=== PATIENT | male | born 1940 | race Caucasian/White ===

== ENCOUNTER 2017-02-25 18:56 | Inpatient (IN) | payer BC ==
--- NOTE | ~2017-02-25 | DS ---
Discharge Summary [facility] [address] [facility] [place]. [address] NAME: AMY MERCADO JR : 44 STATUS : DIS IN PAT#: [id number] AGE: 76 ADM/REG DATE : 02/25/17 MR#: [id number] REPORT SERV DATE: 03/05/17 DICTATED BY: HUNTER COLEMAN DATE: 03/04/17 REPORT STATUS : Draft TRANSCRIBED BY: PHYLLIS DATE: 03/04/17 ADMISSION DATE: 02/25/2017 DISCHARGE DATE: 03/04/2017 CONSULTATION: Neurology, Dr. Jessie Dave. INVASIVE PROCEDURE: None. DISCHARGE DIAGNOSES: 1. Acute left-sided brainstem infarction. 2. Chronic atrial fibrillation. 3. Peripheral arterial disease. 4. Hypertension. 5. Diabetes mellitus type 2. 6. Dyslipidemia. 7. Hypothyroidism. 8. Obstructive sleep apnea. DISCHARGE CONDITION: Stable. HISTORY OF PRESENT ILLNESS: 1. For detailed HPI, please make reference to Dr. Pedro Alarcon's dictation on 02/25/2017. In brief, this is a 76-year-old male with medical history of hypertension, diabetes mellitus, atrial fibrillation, who presented to the hospital with sudden onset of lightheadedness, slurred speech and droopy face, and was brought to the emergency department. On arrival in the emergency department, a stroke alert was called. The neuro team and the ICU team admitted the patient to the ICU. In the ICU, he was found to have a blood pressure of 184/102, pulse of 90. Physical exam was noted for a dysconjugate gaze, left facial droop. The neuro team administered tPA to the patient in the ICU. The patient's neuro deficit had some minimal improvement. There was improvement in the patient's slurred speech and dysconjugate gaze also improved. A repeat CT scan did not show any acute bleed. The patient tolerated tPA without any significant complication. The patient was monitored in the ICU for 48 hours, and subsequently transferred to the medical floor. For detail cause in the ICU, please make reference to Dr. Pedro Alarcon's dictation. The patient underwent physical therapy assessment and was recommended the patient to have acute rehab. The patient was accepted at [facility] where he will undergo acute rehabilitation. 2. Chronic atrial fibrillation. The patient was on aspirin and Plavix prior to presentation. I discussed with the patient's primary ski maker (Dr. Layton) and patient's primary vascular surgeon, Dr. Aguilar. It was noted that the patient has not had any recent stent placement and no further indication for needing Plavix. The patient was started on Eliquis during the course of this admission given a CHADS2-VASc score of 4. The patient was advised to continue aspirin and Eliquis. Also metoprolol was continued throughout the course of this admission. The patient showed no evidence of RVR. 3. Diabetes mellitus. The patient had diabetes education during the course of this Discharge Summary [address] [address] NAME: AMY MERCADO : 44 STATUS : DIS IN PAT#: [id number] AGE: 76 ADM/REG DATE : 02/25/17 MR#: [id number] REPORT SERV DATE: 03/05/17 DICTATED BY: HUNTER COLEMAN DATE: 03/04/17 REPORT STATUS : Draft TRANSCRIBED BY: PHYLLIS DATE: 03/04/17 admission. The patient was advised to continue home dose of glipizide, metformin and subcu insulin, and follow up with primary care physician. 4. Hypertension. The patient was allowed to have permissive hypertension for 48 hours after initial presentation. Subsequently, the patient's antihypertensive medication reinstituted and patient's blood pressure was monitored closely. DISCHARGE MEDICATIONS: 1. Apixaban 5 mg p.o. b.i.d. 2. Aspirin 81 mg p.o. daily. 3. Lipitor 80 mg p.o. daily. 4. Digoxin 0.125 mg p.o. daily. 5. Glipizide 10 mg p.o. b.i.d. 6. Metformin 500 mg p.o. b.i.d. 7. Insulin Levemir 16 units at bedtime. 8. Synthroid 175 mcg p.o. daily. 9. Lopressor 25 mg p.o. b.i.d. 10.Prilosec 20 mg p.o. daily. DISCHARGE CONDITION: Stable. DISCHARGE DISPOSITION: [facility]. Greater than 35 minutes was used to prepare this patient's discharge, reconcile medication, advise the patient on discharge plans and followup. DICTATED BY: MD RUBY Fuentes/PHYLLIS Hunter Coleman MD / [id number] CC: MD Nilay Tinoco M.D.
--- NOTE | ~2017-02-25 | CN ---
Consultation Report [facility] [address] [place]. [address] NAME: AMY MERCADO JR : 44 STATUS : ADM IN [facility]#: [id number] AGE: 76 ADM/REG DATE : 02/25/17 MR#: [id number] REPORT SERV DATE: 02/28/17 DICTATED BY: LENORE ALARCON DATE: 02/25/17 REPORT STATUS : Draft TRANSCRIBED BY: MODKeyon DATE: 02/25/17 CONSULTATION DATE OF CONSULTATION: 02/25/2017 HISTORY OF PRESENT ILLNESS: The patient is awake and alert. He is a 76-year-old white male who today was working in his garage when suddenly he began to feel lightheaded, called his . She noted he haD a slurred speech and droopy face, came to the ED. He was seen by who diagnosed a CVA, and he underwent tPA treatment with marked improvement. The patient denies having previous stroke symptoms in the past. Recently as of yesterday, he saw Dr. Aguilar in the office status post an angioplasty procedure on his left femoral artery area which he says has markedly improved the circulation to his foot. PAST MEDICAL HISTORY: Significant for diabetes, hypertension, and previous knee surgery. He had history of atrial fibrillation and cardioversion in the past. Denies [place]. ALLERGIES: NO KNOWN ALLERGIES. MEDICATIONS: Listed. REVIEW OF SYSTEMS: GI: Negative. : Negative. NEUROLOGIC: Recent CVA is noted on today's event including some intranuclear ophthalmoplegia and dysconjugate gaze which have improved. MUSCULOSKELETAL: Previous knee surgery. ENDOCRINE: Type 2 diabetes. FAMILY HISTORY: Noncontributory. PHYSICAL EXAMINATION: VITAL SIGNS: The patient's blood pressure 184/102, pulse 90, afebrile. GENERAL: The patient is awake, alert, and oriented x3. HEENT: Head is normocephalic. He has slight bleeding in the right scleral area. Pupils equal and reactive. Dysconjugate gaze is gone. Oropharynx normal. Left droop is almost completely reversed. Speech is normal. NECK: Supple. Good upstroke. No bruits. CHEST: Clear to auscultation and percussion. No wheezing or rhonchi. CARDIAC: S1 and S2. No murmurs or gallops at this time. ABDOMEN: Obese, nontender. No masses or organomegaly. EXTREMITIES: He had angioplasty of his left femoral artery, and he has had left knee surgery in the past. NEUROLOGIC: On my exam, cranial nerves 2 through 12 appear to be intact. At this point in time, moves all extremities. Strength is good. Extraocular motions appear to be intact. Consultation Report [facility] [address] [place]. [address] NAME: AMY MERCADO JR : 44 STATUS : ADM IN PAT#: [id number] AGE: 76 ADM/REG DATE : 02/25/17 MR#: [id number] REPORT SERV DATE: 02/28/17 DICTATED BY: LENORE ALARCON DATE: 02/25/17 REPORT STATUS : Draft TRANSCRIBED BY: PHYLLIS DATE: 02/25/17 LABORATORY DATA: Sodium 140, potassium 4.1, chloride 103, CO2 of 29, BUN 16, creatinine 1.26, glucose 163. H and H 12.7 and 39.4, white count 5300, platelet count 180,000. INR 1.0, PT 12.8. Troponin 0.02. Chest x-ray is clear. The patient also has hypothyroidism. HOME MEDICATIONS: Include thyroxine 175, Cozaar 100, Mag-Ox 400, Glucophage 500 p.o. twice a day, Lopressor 25, Prilosec 20, potassium 110. He is allergic to contrast dye. He takes 81 mg aspirin, cinnamon bark, Plavix 75, digoxin 0.125, Glucotrol 10, hydrochlorothiazide 12, ibuprofen 200, and insulin injections 16 units subcu with Bo rosenberg. EKG shows atrial fibrillation, right bundle-branch block. IMPRESSION: 1. Acute cerebrovascular accident given status post tPA. CTA revealed no evidence of bleeding or obstruction. Marked improvement. 2. Hypertension. 3. Diabetes mellitus. 4. Atrial fibrillation. PLAN: Observe in CCU. Continue medications. We will hold Glucophage for tonight. HEIDE/PHYLLIS Lenore Alarcon M.D. / [id number] CC: MD Nilay Tinoco M.D.
--- NOTE | ~2017-02-25 | CN ---
Consultation Report [facility] [address] [place]. [address] NAME: AMY MERCADO JR : 42 STATUS : ADM IN PAT#: [id number] AGE: 76 ADM/REG DATE : 02/25/17 MR#: [id number] REPORT SERV DATE: 02/28/17 DICTATED BY: JESSIE DAVE DATE: 02/25/17 REPORT STATUS : Draft TRANSCRIBED BY: PHYLLIS DATE: 02/25/17 NEUROLOGICAL CONSULTATION CODE STROKE EMERGENCY ROOM CODE STROKE WAS CALLED AT 6:54 P.M. DATE OF CONSULTATION: 02/25/2017 HISTORY: This is a 76-year-old, white male with known history of hypertension, diabetes mellitus, obesity, probable obstructive sleep apnea, and past history of positional vertigo in the past who presented to the emergency room with complaints of dizziness, dysarthria, difficulty walking, and double vision. The patient's symptoms started approximately three hours prior to admission to the emergency room around 4 p.m. In the emergency room, the patient was evaluated by emergency room physician, was taken for an emergent CT of the head as per stroke protocol. The CT of the head showed no acute changes or bleed. Small microvascular changes was seen which appeared to be chronic. The CTA of the neck and brain was done. Thus far, preliminary report shows evidence of stenosis in A-1 segment ? on the left. The patient's blood pressure on admission was 179/105. Additional history was obtained from patient's . The patient has not had any prior history of CVA or TIA. However, she stated that the patient in the past week has been complaining of feeling weak. Today, the patient went outside to work on his yard, however, he could not start his lawnmower, was in the garage when vertigo started, and he summoned his who called the emergency room transport to take patient to the emergency room. On 21 of December, the patient had peripheral blood vessel surgery of the left leg, ? femoropopliteal bypass versus stent. The patient has been on aspirin and Plavix. The patient does not have any history of active bleeding although he does have easy bruising. SOCIAL HISTORY: The patient stopped smoking 12 years ago. However, he is exposed to secondhand smoke from his . There is no history of alcohol use. The patient is retired. FAMILY HISTORY: Negative for history of strokes or heart disease, history of diabetes present in family. REVIEW OF SYSTEMS: The patient had gained approximately 100 pounds in the past 12 years. He does have signs suggestive of obstructive sleep apnea, daytime hypersomnolence, snoring, and has been complaining of having headache upon awakening in the last week. He also had some discomfort in the back of his head on the left. The patient denied chest pain or shortness of breath except on exertion. His primary physician is Nilay Bryant M.D. ALLERGIES: NO KNOWN ALLERGY. Consultation Report [place] [id number] [facility] [place]. [address] NAME: AMY MERCADO JR : 42 STATUS : ADM IN [facility]#: [id number] AGE: 76 ADM/REG DATE : 02/25/17 MR#: [id number] REPORT SERV DATE: 02/28/17 DICTATED BY: JESSIE DAVE DATE: 02/25/17 REPORT STATUS : Draft TRANSCRIBED BY: PHYLLIS DATE: 02/25/17 MEDICATIONS: The patient is on aspirin chewable 81 mg tablet; cinnamon bark oral supplement; clopidogrel 75 mg p.o. daily; digoxin 0.125 mg p.o. daily; glipizide 10 mg p.o. b.i.d.; hydrochlorothiazide 12.5 mg daily; ibuprofen 200 mg p.r.n. for headache; insulin regular 16 units subcu with supper; levothyroxine 0.175 mg p.o. daily; losartan 100 mg p.o. daily; magnesium oxide 400 mg p.o. daily; metformin 500 mg p.o. b.i.d.; metoprolol tartrate 25 mg every morning; omeprazole 20 mg p.o. q.a.m.; potassium gluconate dose unspecified every morning. PHYSICAL EXAMINATION: GENERAL: The patient appeared anxious, was uncomfortable with nausea, had one episode of vomiting when was moved from the CT scanner to the emergency room (fast transport). VITAL SIGNS: Blood pressure initially 179/105 repeat blood pressure 170/100, pulse was 72, respirations 18, temperature afebrile. The patient's weight was 285 pounds. He is approximately 6 feet tall. HEAD AND NECK: Examination showed him to be normocephalic. There was no evidence of trauma. Auscultation of the neck showed no evidence of bruits. EYE EXAM: Sclerae were not icteric. Conjunctiva was pink. ENT: Exam showed very small airway, Mallampati class 3-4. Tongue was midline. Appeared to be slightly enlarged but still within normal range. NECK: Neck was supple. There is no Kernig or Brudzinski. Cervical range of motion was not impaired. CHEST: Symmetrical. LUNGS: Clear. HEART: Auscultation of heart; regular S1, S2. Slightly increased second heart sound. No murmurs or rubs noted on auscultation. ABDOMEN: Obese, soft, nontender. Bowel sounds are present. There was no organomegaly. EXTREMITIES: Showed no clubbing, cyanosis. The extremities appeared diffusely obese but there was no edema. Peripheral pulses were present. The patient is status post knee surgery. Old scar was noted on the left. NEUROLOGICAL EXAMINATION: Mental status exam: The patient was alert and oriented to self, time, and place. His speech was dysarthric. There was no aphasia. The patient was able to name, repeat, and had good insight into his situation. Cranial nerve examination 2 through 12: Visual jara on confrontation showed no visual field deficits. Pupils were small 2.5 mm, reacted to light and accommodation. There was no significant asymmetry. Extraocular movements showed dysconjugate gaze with left eye having difficulty crossing midline on the lateral gaze to the right. The patient had diplopia on lateral gaze to the left and to the right. The patient's neurological exam was consistent with a partial internuclear ophthalmoplegia. Sensory exam initially showed tingling sensation on the right side of the lower face involving yoon-oral area and his tongue. The symptoms fluctuated and appeared to improve after patient received tPA. Facial sensation otherwise show no deficits, very minimal right facial weakness was noted. Tongue was midline. No atrophy or fibrillations were noted. Consultation Report [address]. [address] NAME: AMY MERCADO : 44 STATUS : ADM IN [facility]#: [id number] AGE: 76 ADM/REG DATE : 02/25/17 MR#: [id number] REPORT SERV DATE: 02/28/17 DICTATED BY: JESSIE DAVE DATE: 02/25/17 REPORT STATUS : Draft TRANSCRIBED BY: MODL DATE: 02/25/17 Sternocleidomastoid and trapezius muscles were symmetrical and normal. The rest of cranial nerve examination was normal. Hearing was intact bilaterally. Motor exam: Muscle bulk appeared within normal range. The tone was slightly decreased in both upper extremities and in the right leg. The strength was 5/5 throughout. Right leg, the patient had some difficulty secondary to lumbosacral spine problems (old). Deep tender reflexes showed trace reflexes in the lower extremities, absent ankle jerks, and 1 over 2 reflexes in biceps, and triceps on the left was absent, on the right trace. Sensory exam showed decreased sensation distally in lower extremities to pinprick, light touch, and vibration, appeared to be symmetrically decreased. Cerebellar exam; the patient had definite past pointing on [id number] on the right and left. [id number] was difficult to perform for the patient's secondary to knee problems, reaching with the toe to the finger appeared to be mildly ataxic right greater than left. The patient's gait was ataxic as per patient's , at home prior to admission. LABORATORY STUDIES: Blood sugar on admission 179. CBC with differential; WBC count 5.3, hemoglobin 12.7, hematocrit 39.4, normal differential. Platelet count 188,000. PT/INR 1. BUN 16, creatinine 1.26, GFR 56. Calcium 9, total protein 7.1, alkaline phosphatase 92, ALT 44, AST 23, sodium 140, potassium 4.1, chloride 103, carbon dioxide 29. IMPRESSION: The patient's NIH scale calculated was 5 secondary to limb ataxia, mild facial weakness, and mildly dysarthric speech. The inclusion and exclusion criteria for tPA were reviewed. The patient was given explanation for recommendations for tPA use for acute stroke. Risks and benefits of the tPA were explained. The risk of bleeding as a major complication of tPA was also explained to the patient and his . They both consented for us to give the patient tPA. He received tPA with no complications, and the patient will be moved to the CCU. Post tPA orders will be followed. 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 The patient has stenosis in the right ICA, 30% noncalcified plaque. Multiple risk factors for an acute and recurrent stroke studies include diabetes mellitus, hypertension, obesity, peripheral vascular disease, past history of smoking, second-hand smoke, probable obstructive sleep apnea. All these risk factors were addressed with the patient and his and should be addressed prior to the patient's discharge, and we will monitor for 24 hours in intensive care setting for possible complication of tPA. The patient's symptoms appeared to decrease as patient was receiving tPA. His speech became less dysarthric and ataxia of the right arm improved. The dysconjugate gaze appeared to be less pronounced. We will monitor the patient with vital signs and neuro checks as per stroke protocol orders. Additional workup will include MRI of the brain, echocardiogram, telemetry monitoring for any signs of cardiac risk factors. We will obtain troponins, follow DVT prophylaxis, PT OT to see the patient. Consultation Report [address]. [address] NAME: AMY MERCADO JR : 44 STATUS : ADM IN [facility]#: [id number] AGE: 76 ADM/REG DATE : 02/25/17 MR#: [id number] REPORT SERV DATE: 02/28/17 DICTATED BY: JESSIE DAVE DATE: 02/25/17 REPORT STATUS : Draft TRANSCRIBED BY: PHYLLIS DATE: 02/25/17 SANDRA/PHYLLIS Jessie Dave MD / [id number] CC: MD Nilay Tinoco M.D.
[~2017-02-25 18:56] MED LIST: ASAB PO; GLUCOTRO10 PO; JANUVIA100 MG PO; LAN125 PO; LOP25 PO; MAX25 PO; PLAVIX PO; PRILO PO; SYN.15 PO
[2017-02-25] MEDS ORDERED: ASAB PO (18:57)
[2017-02-25] MEDS ORDERED: LOP25 PO (18:57)
[2017-02-25] MEDS ORDERED: LAN125 PO (18:57)
[2017-02-25] MEDS ORDERED: PLAVIX PO (18:57)
[2017-02-25] MEDS ORDERED: MAGOX4 PO (18:58)
[2017-02-25] MEDS ORDERED: PRILO PO (18:58)
[2017-02-25 19:17] LABS: BASOPHILS 0.6 %; BASOPHILS ABSOLUTE 0.03 10/3/uL (0.0-0.16); EOSINOPHILS 2.3 %; EOSINOPHILS ABSOLUTE 0.12 10/3/uL (0.0-0.53); ER CBC TAT 0 Hrs 09 Mins; HEMATOCRIT 39.4 % (40.0-51.0); HEMOGLOBIN 12.7 g/dL (13.6-17.8); IMMATURE GRANULOCYTES 0.6 %; IMMATURE GRANULOCYTES ABSOLUTE 0.03 10/3/uL (0.0-0.11); LYMPHOCYTES 28.2 %; LYMPHOCYTES ABSOLUTE 1.48 10/3/uL (0.67-4.30); MEAN CORPUS HGB CONC 32.2 g/dL (32.0-36.0); MEAN CORPUSCULAR HEMOGLOB 27.3 pg (26.0-34.0); MEAN CORPUSCULAR VOLUME 84.7 fL (80-100); MEAN PLATELET VOLUME 9.3 fL (9.2-13.0); MONOCYTES 8.6 %; MONOCYTES ABSOLUTE 0.45 10/3/uL (0.21-1.20); NEUTROPHILS 59.7 %; NEUTROPHILS ABSOLUTE 3.14 10/3/uL (2.02-8.40); PLATELET COUNT 188 10/3/uL (150-400); RBC DISTRIBUTION WIDTH 15.3 % (12.0-16.0); RED CELL COUNT 4.65 10/6/uL (4.7-6.1); WHITE BLOOD CELLS 5.3 10/3/uL (4.5-10.5)
[2017-02-25 19:24] LABS: MANUAL DIFF NO %
[2017-02-25 19:25] LABS: PROTIME (NOT ORD) 12.8 SEC (12.0-14.5)
[2017-02-25] MEDS ORDERED: COZAAR100 MG PO (19:25)
[2017-02-25] MEDS ORDERED: HYDROCHLOROT12.5 MG PO (19:25)
[2017-02-25] MEDS ORDERED: SYNTHROID175 MCG PO (19:28)
[2017-02-25] MEDS ORDERED: GLUCPH PO (19:28)
[2017-02-25] MEDS ORDERED: GLUCOTRO10 PO (19:28)
[2017-02-25 19:29] LABS: PARTIAL THROMBO TIME 22.4 SEC (22.5-37.2)
[2017-02-25] MEDS ORDERED: INSNOVR SC (19:29)
[2017-02-25] MEDS ORDERED: CINNAMONPO PO (19:30)
[2017-02-25] MEDS ORDERED: POTASSIUM GLUCONATE PO (19:31)
[2017-02-25 19:33] LABS: ALBUMIN 3.6 G/DL (3.5-5.0); ALKALINE PHOSPHATASE 92 U/L (45-117); BUN (BLOOD UREA NITROGEN) 16 MG/DL (6-23); CHLORIDE, SERUM 103 MMOL/L (96-112); CO2 (CARBON DIOXIDE) 29 MMOL/L (24-34); CREATININE 1.26 MG/DL (0.70-1.30); GFR AFRICAN AMERICAN 65 ML/MIN (>=60); GFR NON AFRICAN AMERICAN 56 ML/MIN (>=60); GLOBULIN 3.5 G/DL (2.5-4.1); GLUCOSE, SERUM 163 MG/DL (60-99); POTASSIUM, SERUM 4.1 MMOL/L (3.5-5.3); SGPT(ALT) 44 U/L (5-65); SODIUM, SERUM 140 MMOL/L (135-148); TOTAL BILIRUBIN 0.4 MG/DL (0-1.2); TOTAL PROTEIN 7.1 G/DL (6.0-8.5); TROPONIN I <0.02 NG/ML (<0.05)
[2017-02-25 19:34] LABS: SGOT(AST) 23 U/L (5-40)
[2017-02-25] MEDS ORDERED: ADVIL PO (19:35)
[2017-02-25 23:43] LABS: PARTIAL THROMBO TIME 23.2 SEC (22.5-37.2)
[2017-02-25 23:44] LABS: PROTIME (NOT ORD) 13.5 SEC (12.0-14.5)
[2017-02-25 23:53] LABS: D-DIMER QUANTITATIVE 4.59 ug/mLFEU (< 0.50)
[2017-02-25 23:59] LABS: CHOL/HDL RATIO(NOT ORDER) 6.1 (0-5); CHOLESTEROL 194 MG/DL (< 200); CPK (IF ELEVATED MB BANDS) 57 U/L (0-200); HDL CHOLESTEROL 32 MG/DL (> 39); LDL CHOLESTEROL 127 MG/DL (< 130); NON-HDL CHOLESTEROL 162 MG/DL (< 160); TRIGLYCERIDE 176 MG/DL (< 150); TROPONIN I <0.02 NG/ML (<0.05); ULTRASENSITIVE TSH 0.953 MCIU/ML (0.358-3.740)
[2017-02-26 00:36] LABS: ASCORBIC ACID (UR NOT ORDER) NEG (NEG); BILIRUBIN, URINE NEGATIVE (NEG); KETONE, URINE NEGATIVE (NEG); LEUKOCYTE ESTERASE(NOT OR NEG (NEG); WBC (NOT ORDERED) (RFLEX) 0 (0-5)
[2017-02-26 06:42] LABS: CPK (IF ELEVATED MB BANDS) 62 U/L (0-200); TROPONIN I <0.02 NG/ML (<0.05)
[2017-02-26 11:34] LABS: ALBUMIN 3.5 G/DL (3.5-5.0); BUN (BLOOD UREA NITROGEN) 16 MG/DL (6-23); CALCIUM, SERUM 9.4 MG/DL (8.5-10.4); CHLORIDE, SERUM 105 MMOL/L (96-112); CO2 (CARBON DIOXIDE) 27 MMOL/L (24-34); CREATININE 1.29 MG/DL (0.70-1.30); DIGOXIN 0.4 NG/ML (0.8-2.0); GFR AFRICAN AMERICAN 63 ML/MIN (>=60); GFR NON AFRICAN AMERICAN 54 ML/MIN (>=60); GLUCOSE, SERUM 191 MG/DL (60-99); IRON BINDING CAPACITY 366 MCG/DL (250-450); IRON, SERUM 53 MCG/DL (35-150); PHOSPHORUS, SERUM 3.5 MG/DL (2.5-4.5); SODIUM, SERUM 142 MMOL/L (135-148)
[2017-02-27 03:26] LABS: BASOPHILS 0.3 %; BASOPHILS ABSOLUTE 0.02 10/3/uL (0.0-0.16); EOSINOPHILS 1.7 %; EOSINOPHILS ABSOLUTE 0.11 10/3/uL (0.0-0.53); HEMATOCRIT 38.3 % (40.0-51.0); IMMATURE GRANULOCYTES 0.5 %; IMMATURE GRANULOCYTES ABSOLUTE 0.03 10/3/uL (0.0-0.11); LYMPHOCYTES 15.6 %; LYMPHOCYTES ABSOLUTE 1.01 10/3/uL (0.67-4.30); MEAN CORPUS HGB CONC 31.3 g/dL (32.0-36.0); MEAN CORPUSCULAR HEMOGLOB 26.9 pg (26.0-34.0); MEAN CORPUSCULAR VOLUME 85.9 fL (80-100); MEAN PLATELET VOLUME 8.8 fL (9.2-13.0); MONOCYTES ABSOLUTE 0.52 10/3/uL (0.21-1.20); NEUTROPHILS 73.9 %; NEUTROPHILS ABSOLUTE 4.79 10/3/uL (2.02-8.40); PLATELET COUNT 174 10/3/uL (150-400); RBC DISTRIBUTION WIDTH 15.3 % (12.0-16.0); RED CELL COUNT 4.46 10/6/uL (4.7-6.1); WHITE BLOOD CELLS 6.5 10/3/uL (4.5-10.5)
[2017-02-27 03:27] LABS: MANUAL DIFF NO %
[2017-02-27 03:39] LABS: ALBUMIN 3.1 G/DL (3.5-5.0); BUN (BLOOD UREA NITROGEN) 13 MG/DL (6-23); CHLORIDE, SERUM 106 MMOL/L (96-112); CO2 (CARBON DIOXIDE) 28 MMOL/L (24-34); CREATININE 1.21 MG/DL (0.70-1.30); GFR AFRICAN AMERICAN 68 ML/MIN (>=60); GFR NON AFRICAN AMERICAN 59 ML/MIN (>=60); GLUCOSE, SERUM 181 MG/DL (60-99); PHOSPHORUS, SERUM 2.8 MG/DL (2.5-4.5); POTASSIUM, SERUM 3.7 MMOL/L (3.5-5.3); SODIUM, SERUM 140 MMOL/L (135-148)
[2017-02-27 03:40] LABS: CALCIUM, SERUM 8.2 MG/DL (8.5-10.4)
[2017-02-28 04:47] LABS: BASOPHILS 0.4 %; BASOPHILS ABSOLUTE 0.03 10/3/uL (0.0-0.16); EOSINOPHILS 2.2 %; EOSINOPHILS ABSOLUTE 0.15 10/3/uL (0.0-0.53); HEMATOCRIT 39.9 % (40.0-51.0); HEMOGLOBIN 12.5 g/dL (13.6-17.8); IMMATURE GRANULOCYTES 0.6 %; IMMATURE GRANULOCYTES ABSOLUTE 0.04 10/3/uL (0.0-0.11); LYMPHOCYTES ABSOLUTE 1.11 10/3/uL (0.67-4.30); MEAN CORPUS HGB CONC 31.3 g/dL (32.0-36.0); MEAN CORPUSCULAR HEMOGLOB 26.9 pg (26.0-34.0); MEAN PLATELET VOLUME 9.1 fL (9.2-13.0); MONOCYTES 10.1 %; NEUTROPHILS 70.7 %; PLATELET COUNT 183 10/3/uL (150-400); RBC DISTRIBUTION WIDTH 15.2 % (12.0-16.0); RED CELL COUNT 4.64 10/6/uL (4.7-6.1); WHITE BLOOD CELLS 6.9 10/3/uL (4.5-10.5)
[2017-02-28 04:59] LABS: MANUAL DIFF NO %
[2017-02-28 05:10] LABS: ALBUMIN 3.2 G/DL (3.5-5.0); BUN (BLOOD UREA NITROGEN) 10 MG/DL (6-23); CALCIUM, SERUM 8.4 MG/DL (8.5-10.4); CHLORIDE, SERUM 107 MMOL/L (96-112); CO2 (CARBON DIOXIDE) 27 MMOL/L (24-34); CREATININE 1.16 MG/DL (0.70-1.30); GFR AFRICAN AMERICAN 72 ML/MIN (>=60); GFR NON AFRICAN AMERICAN 62 ML/MIN (>=60); GLUCOSE, SERUM 183 MG/DL (60-99); PHOSPHORUS, SERUM 2.6 MG/DL (2.5-4.5); SODIUM, SERUM 140 MMOL/L (135-148)
[2017-02-28 07:21] LABS: CREATININE 1.2 MG/DL (0.70-1.30)
[2017-03-01 06:04] LABS: BASOPHILS 0.4 %; BASOPHILS ABSOLUTE 0.02 10/3/uL (0.0-0.16); EOSINOPHILS 2.6 %; EOSINOPHILS ABSOLUTE 0.14 10/3/uL (0.0-0.53); HEMATOCRIT 38.3 % (40.0-51.0); HEMOGLOBIN 12.3 g/dL (13.6-17.8); IMMATURE GRANULOCYTES 0.7 %; IMMATURE GRANULOCYTES ABSOLUTE 0.04 10/3/uL (0.0-0.11); LYMPHOCYTES ABSOLUTE 1.19 10/3/uL (0.67-4.30); MEAN CORPUS HGB CONC 32.1 g/dL (32.0-36.0); MEAN CORPUSCULAR HEMOGLOB 27.6 pg (26.0-34.0); MEAN CORPUSCULAR VOLUME 86.1 fL (80-100); MEAN PLATELET VOLUME 9.1 fL (9.2-13.0); MONOCYTES 9.6 %; MONOCYTES ABSOLUTE 0.52 10/3/uL (0.21-1.20); NEUTROPHILS 64.7 %; PLATELET COUNT 172 10/3/uL (150-400); RED CELL COUNT 4.45 10/6/uL (4.7-6.1); WHITE BLOOD CELLS 5.4 10/3/uL (4.5-10.5)
[2017-03-01 06:06] LABS: MANUAL DIFF NO %
[2017-03-01 06:14] LABS: BUN (BLOOD UREA NITROGEN) 12 MG/DL (6-23); CALCIUM, SERUM 8.5 MG/DL (8.5-10.4); CHLORIDE, SERUM 107 MMOL/L (96-112); CO2 (CARBON DIOXIDE) 27 MMOL/L (24-34); CREATININE 1.13 MG/DL (0.70-1.30); GFR AFRICAN AMERICAN 74 ML/MIN (>=60); GFR NON AFRICAN AMERICAN 64 ML/MIN (>=60); GLUCOSE, SERUM 159 MG/DL (60-99); PHOSPHORUS, SERUM 2.8 MG/DL (2.5-4.5); POTASSIUM, SERUM 3.8 MMOL/L (3.5-5.3); SODIUM, SERUM 139 MMOL/L (135-148)
[2017-03-02 06:57] LABS: BASOPHILS 0.4 %; BASOPHILS ABSOLUTE 0.02 10/3/uL (0.0-0.16); EOSINOPHILS 2.3 %; EOSINOPHILS ABSOLUTE 0.13 10/3/uL (0.0-0.53); HEMOGLOBIN 12.7 g/dL (13.6-17.8); IMMATURE GRANULOCYTES 0.4 %; IMMATURE GRANULOCYTES ABSOLUTE 0.02 10/3/uL (0.0-0.11); LYMPHOCYTES 18.1 %; LYMPHOCYTES ABSOLUTE 1.03 10/3/uL (0.67-4.30); MEAN CORPUS HGB CONC 32.6 g/dL (32.0-36.0); MEAN CORPUSCULAR HEMOGLOB 27.8 pg (26.0-34.0); MEAN CORPUSCULAR VOLUME 85.3 fL (80-100); MEAN PLATELET VOLUME 9.1 fL (9.2-13.0); MONOCYTES 8.6 %; MONOCYTES ABSOLUTE 0.49 10/3/uL (0.21-1.20); NEUTROPHILS 70.2 %; NEUTROPHILS ABSOLUTE 3.99 10/3/uL (2.02-8.40); PLATELET COUNT 167 10/3/uL (150-400); RBC DISTRIBUTION WIDTH 15.2 % (12.0-16.0); RED CELL COUNT 4.57 10/6/uL (4.7-6.1); WHITE BLOOD CELLS 5.7 10/3/uL (4.5-10.5)
[2017-03-02 06:58] LABS: MANUAL DIFF NO %
[2017-03-02 07:09] LABS: BUN (BLOOD UREA NITROGEN) 12 MG/DL (6-23); CALCIUM, SERUM 9.2 MG/DL (8.5-10.4); CHLORIDE, SERUM 106 MMOL/L (96-112); CO2 (CARBON DIOXIDE) 26 MMOL/L (24-34); CREATININE 1.13 MG/DL (0.70-1.30); GFR AFRICAN AMERICAN 74 ML/MIN (>=60); GFR NON AFRICAN AMERICAN 64 ML/MIN (>=60); GLUCOSE, SERUM 177 MG/DL (60-99); POTASSIUM, SERUM 3.9 MMOL/L (3.5-5.3); SODIUM, SERUM 139 MMOL/L (135-148)
[2017-03-03 05:12] LABS: BASOPHILS 0.3 %; BASOPHILS ABSOLUTE 0.02 10/3/uL (0.0-0.16); EOSINOPHILS 1.8 %; EOSINOPHILS ABSOLUTE 0.11 10/3/uL (0.0-0.53); HEMATOCRIT 40.2 % (40.0-51.0); HEMOGLOBIN 12.9 g/dL (13.6-17.8); IMMATURE GRANULOCYTES 0.5 %; IMMATURE GRANULOCYTES ABSOLUTE 0.03 10/3/uL (0.0-0.11); LYMPHOCYTES 21.5 %; LYMPHOCYTES ABSOLUTE 1.31 10/3/uL (0.67-4.30); MEAN CORPUS HGB CONC 32.1 g/dL (32.0-36.0); MEAN CORPUSCULAR HEMOGLOB 27.5 pg (26.0-34.0); MEAN CORPUSCULAR VOLUME 85.7 fL (80-100); MEAN PLATELET VOLUME 9.4 fL (9.2-13.0); MONOCYTES 10.9 %; MONOCYTES ABSOLUTE 0.66 10/3/uL (0.21-1.20); NEUTROPHILS ABSOLUTE 3.95 10/3/uL (2.02-8.40); PLATELET COUNT 195 10/3/uL (150-400); RBC DISTRIBUTION WIDTH 15.6 % (12.0-16.0); RED CELL COUNT 4.69 10/6/uL (4.7-6.1); WHITE BLOOD CELLS 6.1 10/3/uL (4.5-10.5)
[2017-03-03 05:13] LABS: MANUAL DIFF NO %
[2017-03-03 05:25] LABS: BUN (BLOOD UREA NITROGEN) 14 MG/DL (6-23); CALCIUM, SERUM 8.8 MG/DL (8.5-10.4); CHLORIDE, SERUM 104 MMOL/L (96-112); CO2 (CARBON DIOXIDE) 29 MMOL/L (24-34); CREATININE 1.31 MG/DL (0.70-1.30); GFR AFRICAN AMERICAN 62 ML/MIN (>=60); GFR NON AFRICAN AMERICAN 53 ML/MIN (>=60); GLUCOSE, SERUM 158 MG/DL (60-99); PHOSPHORUS, SERUM 3.1 MG/DL (2.5-4.5); POTASSIUM, SERUM 3.7 MMOL/L (3.5-5.3); SODIUM, SERUM 139 MMOL/L (135-148)
[2017-03-04 08:17] LABS: INTERNATIONAL NORMAL RATI 1.1 UNITS (-); PROTIME (NOT ORD) 14.5 SEC (12.0-14.5)
== END 2017-03-04 14:32 | DRG 63 ==
LOC: ER 18:56 → CCU 22:08 → 1SO 03-01 18:47
PROVIDERS: Emergency Medicine; Hospitalist; Internal Medicine Critical Care Medicine; Internal Medicine Pulmonary Disease; Specialist
PROC: 3E03317 Introduction of Other Thrombolytic into Peripheral Vein, Percutaneous Approach (ICD-10-PCS; principal; 2017-02-25)
PROC: 02HV33Z Insertion of Infusion Device into Superior Vena Cava, Percutaneous Approach (ICD-10-PCS; 2017-02-26)
DX: I63.231 Cerebral infarction due to unspecified occlusion or stenosis of right carotid arteries (principal); I48.2 Chronic atrial fibrillation; E11.9 Type 2 diabetes mellitus without complications; I10 Essential (primary) hypertension; R29.705 NIHSS score 5; Z68.37 Body mass index [BMI] 37.0-37.9, adult; K21.9 Gastro-esophageal reflux disease without esophagitis; R47.1 Dysarthria and anarthria; G47.33 Obstructive sleep apnea (adult) (pediatric); R13.12 Dysphagia, oropharyngeal phase; E66.9 Obesity, unspecified; E03.9 Hypothyroidism, unspecified; E78.5 Hyperlipidemia, unspecified; I73.9 Peripheral vascular disease, unspecified; R29.810 Facial weakness; H53.2 Diplopia; Z79.82 Long term (current) use of aspirin; Z79.02 Long term (current) use of antithrombotics/antiplatelets; Z79.84 Long term (current) use of oral hypoglycemic drugs; Z79.4 Long term (current) use of insulin; Z79.899 Other long term (current) drug therapy; Z87.891 Personal history of nicotine dependence
CPT/HCPCS: 36415; 36569; 70450; 70496; 70498; 70551; 71010; 74230; 80048; 80053; 80061; 80069; 80162; 81001; 82550; 82962; 83036; 83540; 83550; 83735; 84100; 84443; 84484; 85025; 85379; 85610; 85730; 86850; 86900; 86901; 87641; 92610-GN; 92611-GN; 93005; 93306; 96365; 96375; 97110-GP; 97112-GO; 97116-GP; 97162-GP; 97166-GO; 97530-GO; 97530-GP; 97535-GO; 99291; A9270-GY; C1751; J1160; J2405; J2997; J3411; Q9967